=== PATIENT | male | born 1975 | race Asian ===

== ENCOUNTER 2020-03-02 13:37 | Emergency (ER) | payer SELFPAY ==
[~2020-03-02] VITALS: Ht 172.7 cm; Wt 74.8 kg
[2020-03-02 14:21] VITALS: BP_SYST 143
[2020-03-02] MEDS ORDERED: RAMI10CA32 PO (14:21)
[2020-03-02] MEDS ORDERED: PRAV20TA59 PO (14:21)
[2020-03-02 14:42] VITALS: BP_SYST 143
== END 2020-03-02 14:42 ==
LOC: SED 13:37
DX: I10 Essential (primary) hypertension (principal)
CPT/HCPCS: 99283; J7030